=== PATIENT | female | born 1980 | race Caucasian/White ===

== ENCOUNTER 2020-03-27 11:38 | Emergency (ER) | payer OTHER ==
[2020-03-27] MEDS ORDERED: DEXAMETHASONE 10 MG/ML VIAL PO STA (14:34)
[2020-03-27] MEDS ORDERED: CHERRY SYRUP 10 ML UDC PO ONE (14:34)
--- NOTE | 2020-03-27 14:37 | ED Physician Documentation ---
PD HPI HEENT - Stated complaint Stated Complaint: EAR PX - Chief complaint Chief Complaint: Heent - History obtained from History obtained from: Patient - History of Present Illness Timing - onset: How many days ago (6) Timing - duration: Days (6) Timing - details: Gradual onset, Still present Location: Right ear, Left ear, Throat Improves: Medication Worsens: Swalllowing Associated symptoms: Congestion, Rhinorrhea, Headache, Cough. No: Fever Similar symptoms before: Diagnosis (OM) Recently seen: Other (had COVID testing done and is negative.) - Additional information Additional information: Previously well 39-year-old female has developed upper respiratory congestion and a cough with a sore throat and she was evaluated and tested negative for COVID. She states that her symptoms improved somewhat and now she has bilateral ear pain. She is had this previously with otitis. She continues to have some cough she has not had a fever. She denies any shortness of breath. Review of Systems Constitutional: denies: Fever Eyes: denies: Photophobia Ears: reports: Ear pain Nose: reports: Rhinorrhea / runny nose, Congestion Throat: reports: Sore throat Cardiac: denies: Chest pain / pressure, Palpitations Respiratory: reports: Cough. denies: Dyspnea GI: denies: Vomiting : denies: Dysuria, Frequency PD PAST MEDICAL HISTORY - Past Medical History Past Medical History: Yes Respiratory: Asthma Psych: Depression - Past Surgical History Past Surgical History: Yes General: Cholecystectomy Ortho: Arthroscopic surgery - Present Medications Home Medications: Ambulatory Orders Medication Instructions Recorded Confirmed Amox/Clav 875/125 [Augmentin] 1 each PO Q12H #20 tablet 03/27/20 Loratadine [Claritin] 10 mg PO DAILY 03/27/20 03/27/20 Sertraline HCl [Zoloft] 200 mg PO DAILY 03/27/20 03/27/20 - Allergies Allergies/Adverse Reactions: Allergies Allergy/AdvReac Type Severity Reaction Status Date / Time No Known Drug Allergies Allergy Verified 03/27/20 11:48 - Social History Does the pt smoke?: No Smoking Status: Never smoker Does the pt drink ETOH?: Yes ETOH Use: Beer Does the pt have substance abuse?: No - Immunizations Immunizations are current?: Yes - POLST Patient has POLST: No PD ED PE NORMAL - Vitals Vital signs reviewed: Yes (Normal) - General General: Alert and oriented X 3, No acute distress, Well developed/nourished - HEENT HEENT: Atraumatic, PERRL, EOMI, Other (The left TM is erythematous along the umbo with indistinct landmarks the right is clear with retraction.The pharynx shows 1+ cryptic tonsils with exudate.) - Neck Neck: Supple, no meningeal sign, No bony TTP - Cardiac Cardiac: RRR, No murmur - Respiratory Respiratory: No respiratory distress, Clear bilaterally - Abdomen Abdomen: Soft, Non tender - Back Back: No CVA TTP, No spinal TTP - Derm Derm: Normal color, Warm and dry, No rash - Extremities Extremities: No deformity, No edema - Neuro Neuro: Alert and oriented X 3, street supervisor 2-12 intact, No motor deficit, No sensory deficit, Normal speech Eye Opening: Spontaneous Motor: Obeys Commands Verbal: Oriented GCS Score: 15 - Psych Psych: Normal mood, Normal affect Results - Vitals Vitals: Vital Signs - 24 hr 03/27/20 03/27/20 11:49 14:20 Temperature 36.6 C 36.6 C Heart Rate 71 71 Respiratory 18 16 Rate Blood Pressure 97/70 101/70 O2 Saturation 100 100 Oxygen O2 Source Room air PD MEDICAL DECISION MAKING - ED course Complexity details: considered differential, d/w patient ED course: 39-year-old female with otitis is administered dexamethasone 10 mg orally we will place her on some Augmentin. Departure - Departure Disposition: 01 Home, Self Care Clinical Impression: Otitis media Qualifiers: Otitis media type: suppurative Chronicity: acute Laterality: left Recurrence: not specified as recurrent Spontaneous tympanic membrane rupture: without spontaneous rupture Qualified Code(s): H66.002 - Acute suppurative otitis media without spontaneous rupture of ear drum, left ear Condition: Stable Instructions: ED Otitis Media Acute Adult Follow-Up: [facility] [Provider Group] Prescriptions: Amox/Clav 875/125 [Augmentin] 1 each PO Q12H #20 tablet Forms: Activity restrictions
[2020-03-27 14:41] VITALS: BP 102/68
== END 2020-03-27 14:40 | disposition home or self-care (01) ==
LOC: ED 11:38
DX: H66.002 Acute suppurative otitis media without spontaneous rupture of ear drum, left ear (principal); J02.9 Acute pharyngitis, unspecified
CPT/HCPCS: 99282; 99284; A9270

== ENCOUNTER 2020-03-30 16:25 | Emergency (ER) | payer OTHER ==
[2020-03-30] MEDS ORDERED: SODIUM CHLORIDE 0.9% 1,000 ML IV STA (16:50)
[2020-03-30] MEDS ORDERED: KETOROLAC 30 MG/ML VIAL IVP STA (16:50)
--- NOTE | 2020-03-30 16:53 | ED Physician Documentation ---
PD HPI ABD PAIN - Stated complaint Stated Complaint: ABD PX/COUGH - Chief complaint Chief Complaint: Abd Pain - History obtained from History obtained from: Patient - Additional information Additional information: She has subacute/chronic abd pain, most days for about 1 year. Usually upper, sometimes lower, stabbing. Tried PPI without relief. Hx cholecystectomy 2 yrs ago, also tubal ligation. Pain now worse with diarrhea after starting augmentin for OM recently. Review of Systems Ten Systems: 10 systems reviewed and negative Constitutional: denies: Fever, Chills Ears: reports: Loss of hearing, Ear pain, Tinnitus/ringing Nose: reports: Congestion. denies: Rhinorrhea / runny nose Throat: denies: Sore throat Cardiac: denies: Chest pain / pressure, Palpitations PD PAST MEDICAL HISTORY - Past Medical History Respiratory: Asthma Psych: Depression, Anxiety - Past Surgical History Past Surgical History: Yes General: Cholecystectomy Ortho: Arthroscopic surgery - Present Medications Home Medications: Ambulatory Orders Medication Instructions Recorded Confirmed Amox/Clav 875/125 [Augmentin] 1 each PO Q12H #20 tablet 03/27/20 Loratadine [Claritin] 10 mg PO DAILY 03/27/20 03/27/20 Sertraline HCl [Zoloft] 200 mg PO DAILY 03/27/20 03/27/20 Dicyclomine [Bentyl] 1 - 2 tab PO QID PRN #20 capsule 03/30/20 Ondansetron Odt [Zofran] 4 mg TL Q6H PRN #10 tablet 03/30/20 - Allergies Allergies/Adverse Reactions: Allergies Allergy/AdvReac Type Severity Reaction Status Date / Time No Known Drug Allergies Allergy Verified 03/27/20 11:48 - Social History Does the pt smoke?: No Smoking Status: Never smoker Does the pt drink ETOH?: Yes Does the pt have substance abuse?: No - Immunizations Immunizations are current?: Yes - POLST Patient has POLST: No PD ED PE NORMAL - Vitals Vital signs reviewed: Yes - General General: Alert and oriented X 3, No acute distress - HEENT HEENT: Other (OM apparently resolved in the interim) - Neck Neck: Supple, no meningeal sign, No bony TTP - Cardiac Cardiac: RRR, No murmur - Respiratory Respiratory: No respiratory distress, Clear bilaterally - Abdomen Abdomen: Normal bowel sounds, Other (Mild diffuse TTP, no G/R/M) - Back Back: No CVA TTP - Derm Derm: Normal color, Warm and dry - Neuro Neuro: Alert and oriented X 3, Normal speech Results - Vitals Vitals: Vital Signs - 24 hr 03/30/20 03/30/20 03/30/20 16:29 16:42 18:28 Temperature 36.2 C L 36.8 C Heart Rate 87 78 64 Respiratory 17 18 16 Rate Blood Pressure 109/71 113/79 114/79 O2 Saturation 100 100 100 Oxygen O2 Source Room air - Labs Labs: Laboratory Tests 03/30/20 03/30/20 03/30/20 16:53 17:00 17:00 WBC 7.3 RBC 4.55 Hgb 14.2 Hct 42.9 MCV 94.3 MCH 31.2 H MCHC 33.1 RDW 12.2 Plt Count 258 MPV 10.1 Neut # (Auto) 3.8 Lymph # (Auto) 2.7 [place] # (Auto) 0.6 Eos # (Auto) 0.1 Baso # (Auto) 0.0 Absolute Nucleated RBC 0.00 Nucleated RBC % 0.0 Sodium 139 Potassium 3.8 Chloride 100 L Carbon Dioxide 28 Anion Gap 11.0 BUN 17 Creatinine 0.7 Estimated GFR (MDRD) 94 Glucose 99 Calcium 9.6 Total Bilirubin 0.3 AST 16 ALT 20 Alkaline Phosphatase 48 Total Protein 8.0 Albumin 4.7 Globulin 3.3 Albumin/Globulin Ratio 1.4 Lipase 36 Urine Color Urine Clarity Urine pH Ur Specific [employer] [place] Urine Protein Urine Glucose (UA) Urine Ketones Urine Occult Blood Urine Nitrite Urine Bilirubin Urine Urobilinogen Ur Leukocyte Esterase Ur Microscopic Review Urine Culture Comments Urine HCG, Qual Stl C. diff Tox B Gene NEGATIVE 03/30/20 18:20 WBC RBC Hgb Hct MCV MCH MCHC RDW Plt Count MPV Neut # (Auto) Lymph # (Auto) [place] # (Auto) Eos # (Auto) Baso # (Auto) Absolute Nucleated RBC Nucleated RBC % Sodium Potassium Chloride Carbon Dioxide Anion Gap BUN Creatinine Estimated GFR (MDRD) Glucose Calcium Total Bilirubin AST ALT Alkaline Phosphatase Total Protein Albumin Globulin Albumin/Globulin Ratio Lipase Urine Color YELLOW Urine Clarity CLEAR Urine pH 7.0 Ur Specific [employer] [place] 1.010 Urine Protein NEGATIVE Urine Glucose (UA) NEGATIVE Urine Ketones NEGATIVE Urine Occult Blood NEGATIVE Urine Nitrite NEGATIVE Urine Bilirubin NEGATIVE Urine Urobilinogen 0.2 (NORMAL) Ur Leukocyte Esterase NEGATIVE Ur Microscopic Review NOT INDICATED Urine Culture Comments NOT INDICATED Urine HCG, Qual NEGATIVE Stl C. diff Tox B Gene - Rads (name of study) CT A/P Radiology: EMP read contemporaneously (IUD in place, NAD) PD MEDICAL DECISION MAKING - ED course ED course: 39-year-old woman with chronic to subacute abdominal pain now associated with diarrhea in the setting of Augmentin. The otitis media which she was being treated for looks like it has resolved. Given her ongoing symptoms, CT was done without pertinent positive findings, will trial some Bentyl. She understands the need to follow-up with primary care, consider upper endoscopy. Departure - Departure Disposition: Home, Self Care Clinical Impression: Abdominal pain Qualifiers: Abdominal location: generalized Qualified Code(s): R10.84 - Generalized abdominal pain Diarrhea Qualifiers: Diarrhea type: presumed infectious Qualified Code(s): R19.7 - Diarrhea, unspecified Condition: Good Record reviewed to determine appropriate education?: Yes Instructions: ED Abdominal Pain Unkn Cause Prescriptions: Dicyclomine [Bentyl] 1 - 2 tab PO QID PRN #20 capsule PRN Reason: Abdominal Pain Ondansetron Odt [Zofran] 4 mg TL Q6H PRN #10 tablet PRN Reason: Nausea / Vomiting Comments: The otitis media has resolved, you can stop the antibiotics. I [place] given the chronic gastritis-like symptoms you are having. The CAT scan was normal. Forms: Activity restrictions
[2020-03-30 17:09] LABS: BASOPHILS % (AUTO) 0.6 %; EOSINOPHILS # (AUTO) 0.1 10^3/uL (0.0-0.7); EOSINOPHILS % (AUTO) 1.5 %; HGB - HEMOGLOBIN 14.2 g/dL (12.0-16.0); LYMPHOCYTES # (AUTO) 2.7 10^3/uL (1.5-3.5); LYMPHOCYTES % (AUTO) 37.2 %; MEAN CORPUSCULAR HEMOGLOBIN 31.2 pg (27.0-31.0); MEAN CORPUSCULAR HGB CONC 33.1 g/dL (32.0-36.0); MEAN CORPUSCULAR VOLUME 94.3 fL (81.0-99.0); MEAN PLATELET VOLUME 10.1 fL (7.9-10.8); MONOCYTES # (AUTO) 0.6 10^3/uL (0.0-1.0); NEUTROPHILS # (AUTO) 3.8 10^3/uL (1.5-6.6); NEUTROPHILS % (AUTO) 51.7 %; PLT - PLATELET COUNT 258 10^3/uL (130-450); RED BLOOD COUNT 4.55 10^6/uL (4.20-5.40); RED CELL DISTRIBUTION WIDTH 12.2 % (12.0-15.0); WHITE BLOOD COUNT 7.3 x10^3/uL (4.8-10.8)
[2020-03-30 17:27] LABS: ALBUMIN 4.7 g/dL (3.2-5.5); ALBUMIN/GLOBULIN RATIO 1.4 (1.0-2.2); BILIRUBIN,TOTAL 0.3 mg/dL (0.2-1.0); CALCIUM 9.6 mg/dL (8.5-10.3); CREATININE 0.7 mg/dL (0.4-1.0)
[2020-03-30] MEDS ORDERED: IOVERSOL 320 100 ML VIAL IVP ONE ×2 (17:29→17:57)
--- NOTE | 2020-03-30 18:08 | CT Report ---
PROCEDURE: Abdomen/Pelvis W INDICATIONS: IV only, abd pain CONTRAST: IV CONTRAST: Optiray 320 ml: 100 PO CONTRAST: *NO PO CONTRAST TECHNIQUE: After the administration of IV contrast, 5 mm thick sections acquired from the diaphragms to the symp hysis. 5 mm thick coronal and sagittal reformats were acquired. For radiation dose reduction, the f ollowing was used: automated exposure control, adjustment of mA and/or kV according to patient size. COMPARISON: None. FINDINGS: Image quality: Excellent. ABDOMEN: Lung bases: Lung bases are clear. Heart size is normal. Solid organs: Liver and spleen are normal in size and enhancement. Gallbladder is surgically absent Biliary system is non dilated. Pancreas enhances normally. No adrenal nodules. Kidneys demonstra te normal size and enhancement, without hydronephrosis. Peritoneum and bowel: Bowel loops demonstrate normal wall thickness and caliber. No free fluid or a ir. Nodes and vessels: No retroperitoneal or mesenteric adenopathy by size criteria. Aorta and inferior vena cava are normal in size. Miscellaneous: No ventral hernias. PELVIS: Genitourinary: Bladder wall thickness is normal. An the appendix is thin-walled and gas-filled. IUD is present in the uterine fundus in the expected location. Ovaries are grossly unremarkable. Miscellaneous: No inguinal hernias or adenopathy. Bones: No suspicious bony lesions. No vertebral body compression fractures. IMPRESSION: 1. No acute intra-abdominal findings. Normal appendix. 2. IUD in expected location within the uterine fundus. Reviewed by: Juliana Leblanc MD on 03/30/2020 6:07 PM PDT Approved by: Juliana Leblanc MD on 03/30/2020 6:07 PM PDT Station ID: [id number]
[2020-03-30 18:50] LABS: BILIRUBIN,URINE NEGATIVE (NEGATIVE); GLUCOSE, URINE (UA) NEGATIVE (NEGATIVE); KETONES,URINE (UA) NEGATIVE (NEGATIVE); LEUKOCYTE ESTERASE, URINE NEGATIVE (NEGATIVE); NITRITE,URINE NEGATIVE (NEGATIVE); OCCULT BLOOD,URINE NEGATIVE (NEGATIVE); PROTEIN,URINE NEGATIVE (NEGATIVE); UROBILINOGEN,URINE 0.2 (NORMAL) E.U./dL (NORMAL)
[2020-03-30 18:52] LABS: CLARITY,URINE CLEAR (CLEAR); HCG UR QUAL NEGATIVE
[2020-03-30 19:06] VITALS: BP 111/76
== END 2020-03-30 19:23 | disposition home or self-care (01) ==
LOC: ED 16:25
DX: R10.84 Generalized abdominal pain (principal); R19.7 Diarrhea, unspecified; Z90.49 Acquired absence of other specified parts of digestive tract; Z97.5 Presence of (intrauterine) contraceptive device
CPT/HCPCS: 36415; 74177; 80053; 81003; 81025; 81599; 83690; 85025; 87493; 96374; 99284; 99285; Q9967; 81001; 82043; 82570; 87045; 87046; 87086

== ENCOUNTER 2020-07-03 16:55 | Emergency (ER) | payer OTHER ==
[2020-07-03 17:26] VITALS: BP 110/80
--- NOTE | 2020-07-03 18:19 | ED Physician Documentation ---
History of Present Illness - Stated complaint Stated Complaint: MED REFILL - Chief complaint Chief Complaint: General - History obtained from History obtained from: Patient - Additonal information Additional information: Patient comes emergency department for chief complaint of needing a refill on her Zoloft. Patient states she is new to [facility] and does not yet have a primary care physician. She states she has been stable on the Zoloft for very long time and has only 3 days worth left. Patient denies any other complaints at this time. She is not suicidal. She has not been ill with anything. No other complaints. Review of Systems Ten Systems: 10 systems reviewed and negative Constitutional: reports: Reviewed and negative Eyes: reports: Reviewed and negative Ears: reports: Reviewed and negative Nose: reports: Reviewed and negative Throat: reports: Reviewed and negative Cardiac: reports: Reviewed and negative Respiratory: reports: Reviewed and negative GI: reports: Reviewed and negative : reports: Reviewed and negative Skin: reports: Reviewed and negative Musculoskeletal: reports: Reviewed and negative Neurologic: reports: Reviewed and negative Psychiatric: reports: Reviewed and negative Endocrine: reports: Reviewed and negative Immunocompromised: reports: Reviewed and negative PD PAST MEDICAL HISTORY - Past Medical History Respiratory: Asthma Psych: Depression, Anxiety - Past Surgical History Past Surgical History: Yes General: Cholecystectomy Ortho: Arthroscopic surgery - Present Medications Home Medications: Ambulatory Orders Medication Instructions Recorded Confirmed Loratadine [Claritin] 10 mg PO DAILY 03/27/20 07/03/20 Sertraline HCl [Zoloft] 200 mg PO DAILY 03/27/20 07/03/20 Ondansetron Odt [Zofran] 4 mg TL Q6H PRN #10 tablet 03/30/20 07/03/20 Sertraline HCl [Zoloft] 200 mg PO BID #120 tablet 07/03/20 - Allergies Allergies/Adverse Reactions: Allergies Allergy/AdvReac Type Severity Reaction Status Date / Time No Known Drug Allergies Allergy Verified 07/03/20 17:22 - Social History Does the pt smoke?: No Smoking Status: Never smoker Does the pt drink ETOH?: Yes Does the pt have substance abuse?: No - Immunizations Immunizations are current?: Yes - POLST Patient has POLST: No PD ED PE NORMAL - Vitals Vital signs reviewed: Yes - General General: Alert and oriented X 3, No acute distress - HEENT HEENT: Atraumatic, PERRL, EOMI, Moist mucous membranes - Neck Neck: Supple, no meningeal sign - Cardiac Cardiac: RRR, No murmur - Respiratory Respiratory: No respiratory distress, Clear bilaterally - Derm Derm: Warm and dry - Extremities Extremities: No deformity - Neuro Neuro: Alert and oriented X 3 - Psych Psych: Normal mood, Normal affect Results - Vitals Vitals: Vital Signs - 24 hr 07/03/20 17:22 Temperature 36.6 C Heart Rate 68 Respiratory 16 Rate Blood Pressure 110/80 O2 Saturation 100 Oxygen O2 Source Room air PD MEDICAL DECISION MAKING - ED course Complexity details: considered differential, d/w patient ED course: Prescription for Zoloft given. I have advised the patient to continue her efforts to get established with a primary care physician. We have discussed the usual indications for return. Departure - Departure Disposition: 01 Home, Self Care Clinical Impression: Medication refill Condition: Stable Follow-Up: Juno Clfiford MD [Provider Admit Priv/Credential] - Prescriptions: Sertraline HCl [Zoloft] 200 mg PO BID #120 tablet Comments: Your medication has been refilled with 2 refills on the prescription. Please continue your search for a primary care physician and follow-up as soon as possible to get established with primary care. Discharge Date/Time: 07/03/20 18:46
== END 2020-07-03 18:46 | disposition home or self-care (01) ==
LOC: ED 16:55
DX: Z76.0 Encounter for issue of repeat prescription (principal)
CPT/HCPCS: 99281

== ENCOUNTER 2020-10-23 16:24 | Emergency (ER) | payer OTHER ==
[2020-10-23 16:32] VITALS: BP 116/77
--- NOTE | 2020-10-23 16:47 | ED Physician Documentation ---
History of Present Illness - Stated complaint Stated Complaint: MED REFILL - Chief complaint Chief Complaint: General - History obtained from History obtained from: Patient - History of Present Illness Timing: Today Pain level max: 0 Pain level now: 0 - Additonal information Additional information: Patient is here requesting a medication refill of her Zoloft, 200 mg p.o. twice daily. She is also requesting a refill of her Valium, 5 mg p.o. as needed for anxiety. She states she uses it about once per week. She is not currently suicidal or homicidal. Has an appointment with her new doctor at the end of this month. [place] Patient is otherwise asymptomatic. Review of Systems Constitutional: denies: Fever : denies: Now [place] PD PAST MEDICAL HISTORY - Past Medical History Cardiovascular: None Respiratory: Asthma Neuro: None Endocrine/Autoimmune: None GI: None MONKEY KEEPER: None : None HEENT: None Psych: Depression, Anxiety Musculoskeletal: None Derm: None - Past Surgical History Past Surgical History: Yes General: Cholecystectomy Ortho: Arthroscopic surgery - Present Medications Home Medications: Ambulatory Orders Medication Instructions Recorded Confirmed Loratadine [Claritin] 10 mg PO DAILY 03/27/20 07/03/20 Sertraline HCl [Zoloft] 200 mg PO DAILY 03/27/20 07/03/20 Ondansetron Odt [Zofran] 4 mg TL Q6H PRN #10 tablet 03/30/20 07/03/20 Sertraline HCl [Zoloft] 200 mg PO BID #120 tablet 07/03/20 Sertraline HCl [Zoloft] 200 mg PO BID #120 tablet 10/23/20 diazePAM [Valium] 5 mg PO BID PRN #14 tablet 10/23/20 - Allergies Allergies/Adverse Reactions: Allergies Allergy/AdvReac Type Severity Reaction Status Date / Time No Known Drug Allergies Allergy Verified 10/23/20 16:32 - Social History Does the pt smoke?: No Smoking Status: Never smoker Does the pt drink ETOH?: Yes Does the pt have substance abuse?: No - Immunizations Immunizations are current?: Yes - POLST Patient has POLST: No PD ED PE NORMAL - Vitals Vital signs reviewed: Yes - General General: Alert and oriented X 3, No acute distress, Well developed/nourished - HEENT HEENT: Moist mucous membranes - Neck Neck: Supple, no meningeal sign - Cardiac Cardiac: RRR, Strong equal pulses - Respiratory Respiratory: No respiratory distress, Clear bilaterally - Abdomen Abdomen: Soft, Non tender, Non distended - Derm Derm: Warm and dry - Neuro Neuro: Alert and oriented X 3 - Psych Psych: Normal mood, Normal affect Results - Vitals Vitals: Vital Signs - 24 hr 10/23/20 16:27 Temperature 36.7 C Heart Rate 84 Respiratory 16 Rate Blood Pressure 116/77 O2 Saturation 99 Oxygen O2 Source Room air PD MEDICAL DECISION MAKING - ED course Complexity details: considered differential, d/w patient ED course: Medications were refilled. Patient with no further issues at this time. She will follow up with her doctor for further care. This document was made in part using voice recognition software. While efforts are made to proofread this document, sound alike and grammatical errors may occur. Departure - Departure Disposition: 01 Home, Self Care Clinical Impression: Medication refill Condition: Good Instructions: Anxiety Disorder Follow-Up: Howie Boo DO [Primary Care Provider] - Within 1 week Prescriptions: diazePAM [Valium] 5 mg PO BID PRN #14 tablet PRN Reason: Anxiety Sertraline HCl [Zoloft] 200 mg PO BID #120 tablet Comments: Follow-up with your doctor for further medication refills. Return if you worsen. Do not drive or operate heavy machinery while taking the Valium. Discharge Date/Time: 10/23/20 16:50
== END 2020-10-23 16:50 | disposition home or self-care (01) ==
LOC: ED 16:24
DX: Z76.0 Encounter for issue of repeat prescription (principal)
CPT/HCPCS: 99282; 99283

== ENCOUNTER 2022-12-15 07:04 | Emergency (ER) | payer OTHER ==
--- NOTE | 2022-12-15 08:08 | XRAY Report ---
PROCEDURE: Chest 2 View X-Ray INDICATIONS: cough TECHNIQUE: 2 views of the chest were acquired. COMPARISON: None. FINDINGS: Surgical changes and devices: None. Lungs and pleura: No pleural effusions or pneumothorax. Lungs are clear. Mediastinum: Mediastinal contours appear normal. Heart size is normal. Bones and chest wall: No suspicious bony lesions. Overlying soft tissues appear unremarkable. IMPRESSION: No acute cardiopulmonary process. Reviewed by: Andres Calvo on 12/15/2022 8:07 AM PDT Approved by: Andres Calvo on 12/15/2022 8:07 AM PDT Station ID: [id number]
--- NOTE | 2022-12-15 08:26 | ED Physician Documentation ---
History of Present Illness - Stated complaint Stated Complaint: COUGH/CHEST CONGESTION - Chief complaint Chief Complaint: General - History obtained from History obtained from: Patient - Additonal information Additional information: The patient comes to the emergency department chief complaint of cough, sore throat, nasal and sinus congestion, left ear pain, and bilateral eye redness and irritation with discharge, worse on left, for the last several days. She has not had any fevers or chills. No nausea or vomiting. She denies any specific sick contacts. The patient states that she thinks she needs an antibiotic. She denies any other complaints at this time. PD PAST MEDICAL HISTORY - Past Medical History Past Medical History: Yes Cardiovascular: None Respiratory: Asthma Neuro: None Endocrine/Autoimmune: None GI: None LEAD LOADER: None : None HEENT: None Psych: Depression, Anxiety Musculoskeletal: None Derm: None - Past Surgical History Past Surgical History: Yes General: Cholecystectomy Ortho: Arthroscopic surgery - Present Medications Home Medications: Ambulatory Orders Medication Instructions Recorded Confirmed Loratadine [Claritin] 10 mg PO DAILY 03/27/20 07/03/20 Sertraline HCl [Zoloft] 200 mg PO DAILY 03/27/20 12/15/22 diazePAM [Valium] 5 mg PO BID PRN #14 tablet 10/23/20 12/15/22 Albuterol Sulf [Ventolin Hfa 1 - 2 puffs INH Q4HR PRN 12/15/22 12/15/22 Inhaler] Benzonatate [Tessalon] 200 mg PO TID PRN #20 cap 12/15/22 Gentamicin 0.3% Ophth Drops 1 drops OPTH BID #5 ml 12/15/22 [Garamycin] - Allergies Allergies/Adverse Reactions: Allergies Allergy/AdvReac Type Severity Reaction Status Date / Time No Known Drug Allergies Allergy Verified 12/15/22 07:09 - Social History Does the pt smoke?: No Smoking Status: Never smoker Does the pt drink ETOH?: Yes Does the pt have substance abuse?: No - Immunizations Immunizations are current?: Yes - POLST Patient has POLST: No PD ED PE NORMAL - Vitals Vital signs reviewed: Yes - General General: Alert and oriented X 3, No acute distress, Well developed/nourished - HEENT HEENT: Atraumatic, PERRL, EOMI, Ears normal, Moist mucous membranes, Pharynx benign - Neck Neck: Supple, no meningeal sign - Cardiac Cardiac: RRR, No murmur, Strong equal pulses - Respiratory Respiratory: No respiratory distress, Clear bilaterally - Abdomen Abdomen: Soft, Non tender, Non distended - Derm Derm: Normal color, Warm and dry, No rash - Extremities Extremities: No deformity, No edema - Neuro Neuro: Alert and oriented X 3, affiliate marketing specialist 2-12 intact, Normal speech - Psych Psych: Normal mood, Normal affect Results - Vitals Vitals: Vital Signs - 24 hr 12/15/22 12/15/22 07:09 08:44 Temperature 36.6 C 36.9 C Heart Rate 82 77 Respiratory 18 16 Rate Blood Pressure 117/73 113/68 O2 Saturation 97 99 Oxygen O2 Source Room air - Labs Labs: Laboratory Tests 12/15/22 08:20 Nasal Adenovirus (PCR) NOT DETECTED Nasal B. parapertussis DNA (PCR) NOT DETECTED Nasal Coronavir 229E PCR NOT DETECTED Nasal Coronavir HKU1 PCR NOT DETECTED Nasal Coronavir NL63 PCR NOT DETECTED Nasal Coronavir OC43 PCR NOT DETECTED Nasal Enterovir/Rhinovir PCR NOT DETECTED Nasal Influenza B PCR NOT DETECTED Nasal Influenza A PCR NOT DETECTED Nasal Parainfluen 1 PCR NOT DETECTED Nasal Parainfluen 2 PCR NOT DETECTED Nasal Parainfluen 3 PCR NOT DETECTED Nasal Parainfluen 4 PCR NOT DETECTED Nasal RSV (PCR) NOT DETECTED Nasal B.pertussis DNA PCR NOT DETECTED Nasal C.pneumoniae (PCR) NOT DETECTED Tyrel Human Metapneumo PCR NOT DETECTED Nasal M.pneumoniae (PCR) NOT DETECTED Nasal SARS-CoV-2 (PCR) NOT DETECTED - Rads (name of study) Chest x-ray Relevant Findings:: Final report received, See rad report (Negative) PD Medical Decision Making - ED course Complexity details: reviewed results, re-evaluated patient, considered differential, d/w patient ED course: The patient was worked up with a chest x-ray and respiratory PCR panel, both of which were unremarkable. I discussed with the patient that her sinus congestion and discomfort is part of a larger clinical picture of upper respiratory symptoms and that considering this and the fact that she is afebrile, there is no indication for antibiotics at this time. We have discussed the expected timeline for the patient's illness, and discussed strategies for managing symptoms at home. The patient may follow-up with her primary care physician we have discussed the usual indications for return. Departure - Departure Disposition: Home, Self Care Clinical Impression: Upper respiratory infection Qualifiers: URI type: unspecified viral URI Qualified Code(s): J06.9 - Acute upper respiratory infection, unspecified Conjunctivitis Qualifiers: Conjunctivitis type: acute Acute conjunctivitis type: unspecified Laterality: bilateral Qualified Code(s): H10.33 - Unspecified acute conjunctivitis, bilateral Condition: Stable Instructions: ED URI Viral Prescriptions: Gentamicin 0.3% Ophth Drops [Garamycin] 1 drops OPTH BID #5 ml Benzonatate [Tessalon] 200 mg PO TID PRN #20 cap PRN Reason: Cough Comments: Your chest x-ray looks good. Your symptoms are consistent with an upper respiratory viral infection, which we have been seeing much of in the community recently. Sinus congestion is a large part of the syndrome, and the vast majority of the time, this is simply response to the viral infection and will resolve as the virus goes away. As such, we do not place patients on antibiotics if they have sinus congestion within the larger picture of viral upper respiratory symptoms, as antibiotics will not treat a virus, and overuse of antibiotics leads to antibiotic resistance and serious infections that are difficult to treat. We will place you on drops for your eyes and on cough medicine as needed. Prescriptions for both of these have been electronically transmitted to the [facility] in [place]. You may pick the prescriptions up on your way home. Please be sure to drink plenty of fluids and get rest. A work note has been provided for you. Your contagiousness will peak leading up to and at the time of maximum symptoms. As your symptoms begin to resolve, so will your contagiousness. A viral panel has been sent and is pending at this time. If there are any significant positive results, we will call you at home and let you know. In general, you may expect your symptoms to last 1 to 2 weeks in total, though they should peak during this time and begin to start improving. Forms: Activity restrictions Discharge Date/Time: 12/15/22 08:49
[2022-12-15 08:48] VITALS: BP 113/68
[2022-12-15 09:23] LABS: B. PARAPERTUSSIS- RESP PCR PAN NOT DETECTED; B. PERTUSSIS- RESP PCR PANEL NOT DETECTED; C. PNEUMONIAE- RESP PCR PANEL NOT DETECTED; CORONAVIRUS 229E-RESP PCR NOT DETECTED; CORONAVIRUS HKU1-RESP PCR NOT DETECTED; CORONAVIRUS NL63-RESP PCR NOT DETECTED; CORONAVIRUS OC43-RESP PCR NOT DETECTED; HUMAN METAPNEUMOVIRUS NOT DETECTED; INFLUENZA A- RESP PCR PANEL NOT DETECTED; INFLUENZA B - RESP PCR PANEL NOT DETECTED; M. PNEUMONIAE- RESP PCR PANEL NOT DETECTED; PARAINFLUENZA VIRUS 1 NOT DETECTED; PARAINFLUENZA VIRUS 2 NOT DETECTED; PARAINFLUENZA VIRUS 3 NOT DETECTED; PARAINFLUENZA VIRUS 4 NOT DETECTED; RHINOVIRUS/ENTEROVIRUS NOT DETECTED; RSV- RESP PCR PANEL NOT DETECTED; SARS-CoV-2 -RESP PCR PANEL NOT DETECTED
== END 2022-12-15 08:49 | disposition home or self-care (01) ==
LOC: ED 07:04
DX: J06.9 Acute upper respiratory infection, unspecified (principal); H10.33 Unspecified acute conjunctivitis, bilateral; Z20.822 Contact with and (suspected) exposure to COVID-19
CPT/HCPCS: 87633; 99283; 99284